=== PATIENT | male | born 1995 | race Caucasian/White ===

== ENCOUNTER 2021-11-14 00:30 | Emergency (ER) | payer OTHER, BC ==
[2021-11-14] MEDS ORDERED: Sodium Chloride 0.9% 2.5 ML Syringe FLUSH PRN (00:34)
[2021-11-14] MEDS ORDERED: Sodium Chloride 0.9% 10 ML Syringe FLUSH PRN (00:34)
[2021-11-14] MEDS ORDERED: Sodium Chloride 0.9% 1,000 ML IV ONE (00:35)
[2021-11-14] MEDS ORDERED: Diphtheria,Pertussis(Acell),Tetanus Vaccine 0.5 ML Syringe IM ONE (00:36)
[2021-11-14] MEDS ORDERED: Morphine 4 MG/ML VIAL IVPUSH ONE (00:36)
[2021-11-14] MEDS ORDERED: Morphine 4 MG/ML VIAL ONE (00:37)
[2021-11-14] MEDS ORDERED: Ondansetron 4 MG/2 ML SDV ONE (00:42)
[2021-11-14 01:17] LABS: CARBON DIOXIDE,CO2 21.1 mmol/L (21.0-32.0); POTASSIUM,K 3.3 mmol/L (3.5-5.1)
[2021-11-14] MEDS ORDERED: HYDROmorphone 1 MG/ML Syringe IVPUSH ONE ×2 (01:28→04:00)
[2021-11-14] MEDS ORDERED: Ondansetron 4 MG/2 ML SDV IVPUSH ONE (01:30)
[2021-11-14] MEDS ORDERED: Bacitracin Oint 1 GM U/D Packet TOP ONE (01:58)
[2021-11-14] MEDS ORDERED: HYDROmorphone 1 MG/ML Syringe IVPUSH STA (02:52)
[2021-11-14] MEDS ORDERED: Iopamidol 755 MG/ML 500 ML Multipack Bottle IVPUSH ONE (02:58)
[2021-11-14] MEDS ORDERED: Bacitracin Oint 28.35 GM Tube TOP SCH (06:00)
[2021-11-14] MEDS ORDERED: Bacitracin Oint 28.35 GM Tube TOP STA (06:07)
[2021-11-14 06:32] VITALS: BP 132/71; PULSE 100
== END 2021-11-14 06:15 | disposition home or self-care (01) ==
LOC: MW.ED 00:30
DX: S01.80XA Unspecified open wound of other part of head, initial encounter (principal); S41.102A Unspecified open wound of left upper arm, initial encounter; S41.101A Unspecified open wound of right upper arm, initial encounter; S81.802A Unspecified open wound, left lower leg, initial encounter; S81.801A Unspecified open wound, right lower leg, initial encounter; Z23 Encounter for immunization; V29.9XXA Motorcycle rider (driver) (passenger) injured in unspecified traffic accident, initial encounter; Y93.55 Activity, bike riding
CPT/HCPCS: 36415; 70450; 70486; 71045; 71275; 72125; 72128; 72131; 72170; 74177; 80053; 80305; 80307; 81003; 85025; 85610; 90471; 90715; 96361; 96374; 96375; 96376; 99284; J1170; J2270; J2405; J3490; J7030; Q9967; 99285

== ENCOUNTER 2021-12-13 03:40 | Emergency (ER) | payer BC ==
[2021-12-13 04:01] VITALS: BP 115/63; PULSE 144
[2021-12-13 04:42] LABS: BLOOD UREA NITROGEN,BUN 5 mg/dL (7.0-18.0); CARBON DIOXIDE,CO2 28.5 mmol/L (21.0-32.0); CHLORIDE,CL 101 mmol/L (98-107); GLUCOSE RANDOM 103 mg/dL (74-106); POTASSIUM,K 3.6 mmol/L (3.5-5.1); SODIUM,NA 142 mmol/L (136-148)
[2021-12-13 04:48] LABS: ESTIMATED GFR 94 mL/min (>60)
== END 2021-12-13 05:36 | disposition home or self-care (01) ==
LOC: MW.ED 03:40
DX: F15.10 Other stimulant abuse, uncomplicated (principal); F10.129 Alcohol abuse with intoxication, unspecified; Z90.49 Acquired absence of other specified parts of digestive tract
CPT/HCPCS: 36415; 80053; 80307; 82550; 83735; 84484; 85025; 85610; 93005; 93010; 99283; 99284

== ENCOUNTER → 2022-02-04 | Emergency (ER) | payer BC | END | disposition left against medical advice (07) | LOC: MW.ED 00:17 | DX: T40.2X1A Poisoning by other opioids, accidental (unintentional), initial encounter (principal) | CPT/HCPCS: 99284 ==

== ENCOUNTER 2025-03-16 22:04 | Emergency (ER) | payer SELFPAY ==
[2025-03-16 22:23] VITALS: BP 166/129; PULSE 87
== END 2025-03-16 22:40 | disposition home or self-care (01) ==
LOC: MW.ED 22:04
DX: F10.120 Alcohol abuse with intoxication, uncomplicated (principal); F17.200 Nicotine dependence, unspecified, uncomplicated; Z90.49 Acquired absence of other specified parts of digestive tract
CPT/HCPCS: 99283; 99284